=== PATIENT | male | born 1980 | race Caucasian/White ===

== ENCOUNTER 2019-01-12 19:15 | Emergency (ER) | payer MEDICAID, SELFPAY ==
[2019-01-12 19:17] VITALS: BP 153/79; PULSE 88; RESP 18; TEMP 36.8; O2SAT 99; BMI 24.6
[2019-01-12 19:20] VITALS: BP 153/79; PULSE 88; RESP 18; TEMP 36.8; O2SAT 99
[2019-01-12 20:20] VITALS: TEMP 37
--- NOTE | 2019-01-12 20:44 | ED.DCSUM_ITS ---
- ER Visit Summary Date of Service: 01/12/19 Chief Complaint: Right arm cellulitis History of Present Illness: The patient is a 38 M who has right arm cellulitis. He has had this for 3 days. He went to [facility] 2 days ago and was given antibiotics. No I&D was performed at that time. He states that it is not getting any better. He was given Bactrim and Keflex but he did not get them filled. He denies any fevers. He does have a history of axillary abscesses in the past. Physical Examination: Vital signs are reviewed. His heart is regular rate and rhythm. Lungs are clear. Abdomen is soft. He has local swelling to the right proximal forearm where there is a 3 x 3 cm abscess. There is surrounding erythema. He does have active drainage at this time. Test Results: None performed Emergency Department Course and Treatment: The patient does have a local abscess with cellulitis. I&D was performed. The patient was prepped with chlorhexidine. 2 cc of lidocaine was used to anesthetize the area around the opening that is already at the dome of the abscess. I then extended this very mildly. I then used a curved hemostats and broke up any loculations. There is a moderate amount of purulent material that returned. I then irrigated with saline. The patient was given a dose of IV clindamycin. According to the outpatient summary from [place] he does have Bactrim and Keflex at the pharmacy waiting for him. They state that they can pick this up tomorrow. He will continue warm soaks at home and will take the antibiotics. Treatment Plan: [] Disposition: Discharge Impression: Right arm cellulitis and abscess I&D by ED physician This note was generated with goBramble dictation software. It may contain incorrect words, spelling, and punctuation that were not noted in review of the chart prior to signing ED Disposition - Plan for ED Patient: Referrals: Care Physician,No Primary [Primary Care Provider] -
--- NOTE | 2019-01-12 20:47 | ED.DEP ---
ED Disposition - Plan for ED Patient: Disposition: Home or Assisted Living Instructions: Cellulitis, ABSCESS, Incision and Drainage Referrals: Care Physician,No Primary [Primary Care Provider] -
[2019-01-12 21:14] VITALS: BP 109/76; PULSE 74; RESP 15; O2SAT 98
== END 2019-01-12 21:19 | disposition home or self-care (01) ==
PROVIDERS: Emergency Provider Emergency Medicine
DX: L03.113 Cellulitis of right upper limb (principal); L02.413 Cutaneous abscess of right upper limb
CPT/HCPCS: 10060; 96365; 99285; J7050; A4216

== ENCOUNTER 2020-08-02 11:41 | Day surgery (SDC) | payer MEDICAID, SELFPAY ==
[2020-08-02] VITALS (11 sets, daily range): BP systolic 119–160; BP diastolic 76–96; PULSE 65–88; RESP 14–18; TEMP 36.3–37.2; O2SAT 94–100; BMI 24.7
--- NOTE | 2020-08-02 11:53 | RAD_ITS ---
HISTORY: knee pain. TECHNIQUE: XR Knee 1 or 2 Views. Number of images including paperwork: 2. COMPARISON: None. FINDINGS: OSSEOUS STRUCTURES: No acute fracture. Mineralization unremarkable. JOINT SPACES: Maintained. No dislocation. SOFT TISSUES: Large anterior soft tissue swelling. RAD/Knee 1 or 2 Views IMPRESSION: No acute fracture or dislocation identified in the right knee. Large amount of anterior soft tissue swelling, possible prepatellar bursitis or other fluid collection. at 1323 Reported and signed by: Richelle Rios MD Electronically Signed: Richelle Rios MD at 13:22 EDT Tel , Service support ,
[2020-08-02 12:39] LABS: Absolute Lymphocyte Count 1.75 X10^3/uL (0.83-4.51); Absolute Neutrophil Count 6.6 X10^3/uL (2.0-7.7); Basophil# 0.04 X10^3/uL; Basophil% 0.4 % (0-1); Eosinophil# 0.17 X10^3/uL; Eosinophils% 1.9 % (0-5); Hematocrit 43.1 % (40-54); Hemoglobin 14.1 g/dL (13.0-16.5); Lymphocyte # 1.75 X10^3/ul (0.83-4.51); Lymphocyte % 19.3 % (19-41); Mean Corp Hgb Conc 32.7 g/dL (32-36); Mean Corpuscular Hgb 27.3 pg (27.0-32.0); Mean Corpuscular Volume 83.5 fL (80-94); Mean Platelet Vol. 9.4 fl (6.2-12.0); Monocyte# 0.51 X10^3/uL; Monocyte% 5.6 % (0-10); NRBC Flagged by Analyzer 0 % (0-5); Neutrophil # 6.58 X10^3/uL (2.7-7.7); Neutrophil % 72.4 % (47-70); Platelet Count 358 K/mm3 (150-450); RBC Distribution Width CV 13.3 % (11.6-14.6); RBC Distribution Width SD 41.1 fl (35.1-43.9); Red Blood Count 5.16 M/mm3 (4.6-6.2); White Blood Count 9.1 K/mm3 (4.4-11.0)
[2020-08-02 12:43] LABS: Erythrocyte Sedimentation Rate 42 mm/hr (0-20)
--- NOTE | 2020-08-02 12:47 | EX.ED.DYSGE1 ---
HPI History of Present Illness Chief Complaint: Abscess Informant: patient Narrative Narrative: 39-year-old male presents with right knee infection. States is been present for approximately 7 to 10 days. Was seen at [place] emergency department 1 week ago and placed on antibiotics. Continues to worsen and is now draining. Worse with movement. Aching in nature. Denies any trauma. PFSH PFSH Home Medications doxycycline hyclate 100 mg PO BID 08/02/20 [History Last Taken Unknown] Allergy/AdvReac Type Severity Reaction Status Date / Time No Known Allergies Allergy Verified 08/02/20 11:42 Social History Smoking Status: Never smoker ROS ROS ED Constitutional Constitutional ED: Denies chills, fever(s) or sweats Eyes Eyes: Denies blurry vision, change in vision or diplopia ENT ENT ED: Denies rhinorrhea or sore throat Cardiovascular Cardiovascular: Denies chest pain, orthopnea, palpitations or racing heartbeat Respiratory/Chest Respiratory/Chest: Denies cough, dyspnea, dyspnea on exertion, orthopnea or sputum Gastrointestinal Gastrointestinal: Denies abdominal pain, constipation, diarrhea, melena, nausea or vomiting Genitourinary Genitourinary ED: Denies dysuria, hematuria or urinary frequency Musculoskeletal Musculoskeletal: Denies arthralgias, myalgias or neck pain Integumentary Reports other Details: Erythema and warmth. Neurologic Neurologic: Denies headache(s), paresthesias or weakness Psychiatric Psychiatric: Denies anxiety or depression Hematologic/Lymphatic Hematologic/Lymphatic: Denies easy bleeding or easy bruising Allergic/Immunologic Allergic/Immunologic ED: Denies mouth swelling or tongue swelling EXAM Physical Exam Const Vital Signs: 08/02/20 11:43 08/02/20 12:28 08/02/20 14:59 Temperature 97.3 F L 98.3 F Temperature Source Temporal Oral Pulse Rate 87 66 Respiratory Rate 14 16 17 Blood Pressure 119/84 H 131/81 H Blood Pressure Mean 95 97 Blood Pressure Source Monitor Blood Pressure Position Sitting Blood Pressure Location Right Arm Pulse Ox 97 100 Oxygen Delivery Method Room Air Room Air 08/02/20 15:03 Temperature 98.3 F Temperature Source Oral Pulse Rate 71 Respiratory Rate 18 Blood Pressure 131/81 H Blood Pressure Mean 97 Blood Pressure Source Blood Pressure Position Blood Pressure Location Pulse Ox 98 Oxygen Delivery Method Room Air Positive well nourished and well developed General Appearance ED: well developed HEENT Reports TM's clear and moist mucous membranes normocephalic and atraumatic Tympanic Membrane ED: Yes TM's clear Eyes PERRL and EOMs intact bilaterally Neck no lymphadenopathy, supple and no JVD Chest Wall inspection of chest normal Resp normal respiratory effort and clear to auscultation bilaterally Cardio regular rate, S1 normal heart sound, S2 normal heart sound and no murmurs Peripheral Pulses: pulses 2+ throughout GI soft to palpation, non-tender and non-distended Back/Spine no CVA tenderness and no thoracic nor lumbar tenderness Extremity Extremity Narrative: Increased warmth and erythema with drainage from the superficial portion of the right anterior knee. Full range of motion. Strong palpable pulses. Neuro CN's II-XII intact bilaterally and no sensory deficits noted Sensorium / Orientation: alert Motor Exam: strength 5/5 throughout Psych mental status grossly normal Skin Skin Narrative: Described above. MDM MDM MDM Narrative Medical decision making narrative: Patient appears well and nontoxic. Afebrile. No significant leukocytosis. Inflammatory changes. X-ray shows prepatellar bursitis. Concern for septic bursitis failing outpatient therapy. Spoke with orthopedic surgery Dr. Byrd who will take the patient to the operating room for washout. Patient admitted the operating room in stable condition. Lab Data Attestation: I reviewed the patient's lab results. Labs: Laboratory Results - last 24 hr 08/02/20 08/02/20 12:29 12:29 WBC 9.1 RBC 5.16 Hgb 14.1 Hct 43.1 MCV 83.5 MCH 27.3 MCHC 32.7 RDW Std Deviation 41.1 RDW Coeff of Franky 13.3 Plt Count 358 MPV 9.4 Immature Gran % (Auto) 0.400 Neut % (Auto) 72.4 H Lymph % (Auto) 19.3 [place] % (Auto) 5.6 Eos % (Auto) 1.9 Baso % (Auto) 0.4 Absolute Neuts (auto) 6.6 Absolute Lymphs (auto) 1.75 Nucleated RBC % 0 ESR 42 H Sodium 136 Potassium 3.9 Chloride 102 Carbon Dioxide 30.0 Anion Gap 4 L BUN 13 Creatinine 0.98 Estim Creat Clear Calc 104.49 Est GFR (MDRD) Af Amer 109 Est GFR (MDRD) Non-Af 90 BUN/Creatinine Ratio 13.3 Glucose 90 Calcium 9.1 C-React Prot Ext Range 70.90 H Radiography Diagnostic Testing: Radiology Impression Knee X-Ray 08/02/20 11:53 IMPRESSION: No acute fracture or dislocation identified in the right knee. Large amount of anterior soft tissue swelling, possible prepatellar bursitis or other fluid collection. at 1323 Reported and signed by: Richelle Rios MD Electronically Signed: Richelle Rios MD at 13:22 EDT Tel , Service support , Discharge Plan Dx/Rx/DC Orders Clinical Impression: Septic prepatellar bursitis Disposition Disposition: Acute Care Hospital [facility] Discharge Date/Time: 08/02/20 15:12
[2020-08-02 12:51] LABS: Anion Gap 4 (5-15); BUN 13 mg/dL (7-18); BUN/Creat Ratio 13.3 RATIO (10-20); Calcium,Total 9.1 mg/dL (8.5-10.1); Chloride 102 mmol/L (98-107); Creatinine, Serum 0.98 mg/dL (0.70-1.30); EST Glomerular Filtration Rate 90 mL/min (>60); Est Glom Filt Rate - Afr Amer 109 mL/min (>60); Estimated Creatinine Clearance 104.49 ml/min; Glucose 90 mg/dL (74-106); Potassium 3.9 mmol/L (3.5-5.1); Sodium Level 136 mmol/L (136-145)
--- NOTE | 2020-08-02 15:09 | HP.PCM_ITS ---
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 He denies any other recent infections or injury to the knee. He denies pain with knee range of motion all of his pain is anterior over the septic bursitis with standing. No other complaints. [facility] Home Medications doxycycline hyclate 100 mg PO BID 08/02/20 [History Last Taken Unknown] Allergy/AdvReac Type Severity Reaction Status Date / Time No Known Allergies Allergy Verified 08/02/20 11:42 Social History Smoking Status: Never smoker Vital Signs Vital Signs Vital Signs: 08/02/20 11:43 08/02/20 12:28 08/02/20 14:59 Temperature 97.3 F L 98.3 F Temperature Source Temporal Oral Pulse Rate 87 66 Respiratory Rate 14 16 17 Blood Pressure 119/84 H 131/81 H Blood Pressure Mean 95 97 Blood Pressure Source Monitor Blood Pressure Position Sitting Blood Pressure Location Right Arm Pulse Ox 97 100 Oxygen Delivery Method Room Air Room Air 08/02/20 15:03 Temperature 98.3 F Temperature Source Oral Pulse Rate 71 Respiratory Rate 18 Blood Pressure 131/81 H Blood Pressure Mean 97 Blood Pressure Source Blood Pressure Position Blood Pressure Location Pulse Ox 98 Oxygen Delivery Method Room Air Weight Weight: 172 lb Body Mass Index (BMI) 24.7 Physical Exam Const alert, oriented x3 and no apparent distress General Appearance: cooperative and comfortable Extremity Extremity Narrative: Right knee purulent drainage from anterior septic bursitis with surrounding soft tissue and bursal swelling and erythema. There is no joint effusion. He has a nonpainful arc of motion. Neurovascular intact right lower extremity. 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 Results Lab / Micro Data Result Diagrams: 08/02/20 12:29 08/02/20 12:29 Labs: Laboratory Results - last 24 hr 06/26/21 06/26/21 12:29 12:29 WBC 9.1 RBC 5.16 Hgb 14.1 Hct 43.1 MCV 83.5 MCH 27.3 MCHC 32.7 RDW Std Deviation 41.1 RDW Coeff of Franky 13.3 Plt Count 358 MPV 9.4 Immature Gran % (Auto) 0.400 Neut % (Auto) 72.4 H Lymph % (Auto) 19.3 [place] % (Auto) 5.6 Eos % (Auto) 1.9 Baso % (Auto) 0.4 Absolute Neuts (auto) 6.6 Absolute Lymphs (auto) 1.75 Nucleated RBC % 0 ESR 42 H Sodium 136 Potassium 3.9 Chloride 102 Carbon Dioxide 30.0 Anion Gap 4 L BUN 13 Creatinine 0.98 Estim Creat Clear Calc 104.49 Est GFR (MDRD) Af Amer 109 Est GFR (MDRD) Non-Af 90 BUN/Creatinine Ratio 13.3 Glucose 90 Calcium 9.1 C-React Prot Ext Range 70.90 H Micro: Microbiology 08/02/20 14:28 SARS-CoV-2 Antigen (Rapid) - Final Mucosa - Nose Radiology Impression Knee X-Ray 08/02/20 11:53 IMPRESSION: No acute fracture or dislocation identified in the right knee. Large amount of anterior soft tissue swelling, possible prepatellar bursitis or other fluid collection. at 1323 Reported and signed by: Richelle Rios MD Electronically Signed: Richelle Rios MD at 13:22 EDT Tel , Service support , Assessment & Plan Assessment/Plan (1) Septic prepatellar bursitis: QUALIFIERS: Laterality: right Qualified Code(s): M71.161 - Other infective bursitis, right knee PLAN: Plan for open irrigation and debridement of right prepatellar bursa.
--- NOTE | 2020-08-02 15:09 | NURSING ---
1450 DR GHOSH IN ER
[2020-08-02] MEDS: Cefazolin 2 GM in 0.9% Normal Saline 100 ML IV (15:13)
--- NOTE | 2020-08-02 16:01 | PCM.OPRPT ---
Report of Operation Date of Procedure: 08/02/20 Description of Surgical Findings:: Preoperative diagnosis: Septic bursitis prepatellar right knee Postoperative diagnosis: Same Procedure: Open irrigation and debridement of right prepatellar bursa Anesthesia: General EBL: 10 cc Complications: None Condition: Stable to PACU Tourniquet time 25 minutes at 300 mmHg Indication for procedure: 39-year-old male patient with septic prepatellar bursitis of the right knee previously seen at another facility and placed on a minimal dose of Keflex, developed purulent drainage and continued signs of infection presented to [facility]. Patient was seen in emergency room department we just did discuss operative intervention risk benefits and alternatives were reviewed including risk of bleeding continued infection. Procedure: Patient was met in preoperative holding area once again the operative extremity was identified by with patient position was marked patient brought back to the operative wheeled cart and transferred the operating table in supine position. Anesthesia was started. Patient was prepped and draped in usual sterile fashion a timeout was called to ensure the proper patient procedure extremity being contemplated a 7 cm incision was made lateral to open purulent area that had friable tissue. It was determined to go lateral to this to avoid closure over this friable tissue. Superficial cultures as well as deep cultures were taken. The bursa was excised with sharp dissection a [place] was used to make sure that all areas of the bursal tissue were investigated and excised there did not appear to be any deeper penetration through the joint capsule patellar tendon was intact thorough irrigation of the bursal space was performed with sterile saline pulse lavage followed by a Betadine rinse followed by several more liters of pulse lavage irrigation the wound and incisional area were closed with 2-0 Prolene vertical mattress stitches dressing was applied a form of Xeroform Mepilex AG web roll and an Selvin wrap. Patient tolerated procedure well sent to the PACU in stable condition. He will be discharged home on Bactrim DS twice daily and he will follow-up this week for a wound check. We will follow his cultures of for some reason requires adjustment we will contact him for antibiotic management. Ice and elevation.
--- NOTE | 2020-08-02 16:07 | PCM.DC ---
Discharge Instructions Diet Discharge Diet: No restrictions Activity Weight Bearing Status: Weight bearing as tolerated Keep extremity elevated above heart level: Operative Extremity Dressing / Incision Call your doctor if you observe: Shortness of breath and Chest pain Additional Dressing/Incision Instructions:: Ice and elevate next 5 days .keep dressing on clean and dry for 72 hours then may remove begin showering daily but do not submerge in tub or pool. After shower may apply Band-Aids or light dressing and Selvin wrap, dressing should be changed daily after this point, and the wounds need to be kept clean and covered. Encourage knee range of motion weightbearing as tolerated, use crutches until confident in knee then may discontinue. No strenuous activity. When not ambulating keep iced and elevated . Do not mix pain medication with recreational drugs or alcohol only take as prescribed can be addictive and abusive, call with any questions or concerns. Follow Up Care Please Follow Up With: Milad Peraza DO When: August 08, call for appointment time Test Results: Test results from this visit will be discussed in further detail at your follow-up appointment, if applicable. Discharge Plan Admission Attending Provider: Milad Peraza Primary Care Provider: Care Physician,Angélica Primary Discharge Orders/Prescriptions Prescriptions: New sulfamethoxazole-trimethoprim [Bactrim DS] 800-160 mg tablet 1 tab PO BID Qty: 20 RF: 0 oxycodone 5 mg tablet 5 mg PO Q4H 5 Days Qty: 20 RF: 0 Discontinued doxycycline hyclate 100 mg tablet 100 mg PO BID RF: 0 Referrals / Follow Up: Care Physician,Angélica Primary [Primary Care Provider] - Disposition Disposition (needs filled in before D/C Order can be placed): Home, Self Care
[2020-08-02] MEDS: 0.9% Normal Saline 1,000 ML 100 ML IV (16:45)
[2020-08-02] MEDS: Cefazolin 1 GM/50 ML BAG IV (16:50)
--- NOTE | 2020-08-02 18:33 | SUR.PHASEII ---
PATIENT READY FOR D/C HOME AT 1730, AWAITING PHARMACY TO PROCESS PRESCRIPTIONS.
== END 2020-08-02 18:56 | disposition home or self-care (01) ==
LOC: ED 12:22 → SDC 14:59 → AC 15:01
PROVIDERS: Emergency Provider Emergency Medicine; Visit Provider Orthopaedic Surgery
PROC: (CPT 27340; principal; 2020-08-02 15:15)
DX: M71.161 Other infective bursitis, right knee (principal)
CPT/HCPCS: 01320; 27340; 73560; 80048; 85025; 85652; 86140; 87070; 87075; 87077; 87102; 87186; 87205; 87206; 87426; 99282; J7030; A4216; J2405